=== PATIENT | female | born 1940 | race Caucasian/White ===

== ENCOUNTER 2017-05-27 13:41 | Emergency (ER) | payer MEDICARE, OTHER ==
--- NOTE | ~2017-05-27 | CT71 ---
[facility] A Service [facility] RADIOLOGY TEXT RESULTS PATIENT: CAROLYNN RODRIGUEZ LOCATION: SED : 40 UNIT #: [id number] AGE: [address]: Temo Clay MD SEX: F ORDER DR: [id number] [address] [address] [id number] E MR#: [id number] Acc #: [id number] NAME: CAROLYNN RODRIGUEZ : 1940 SEX: F STUDY DATE/TIME: 05/27/2017 14:11 UNIT: SED ROOM: STUDY DESCRIPTION: CT Head Wo Contrast Attending Physician: Temo Clay M.D. Ordering Physician: Temo Clay M.D. Primary Care Physician: Arnaldo Cardenas M.D. MEDICAL IMAGING REPORT This report is preliminary unless electronic signature is present. EXAM CT scan of the head without contrast. HISTORY Fall with trauma to head. History of brain bleed. Patient fell today. The patient is on blood thinner. Injury happened an hour ago, now has dizziness. COMPARISON 07/06/2007 TECHNIQUE Unenhanced images were obtained through the brain. This CT exam was performed with one or more of the following radiation dose reduction techniques: automatic exposure control, adjustment of mA and/or kV according to patient size, and iterative reconstruction. FINDINGS There are old ischemic changes in the left parker radiata and left basal ganglia. There is kike hole visible on both sides in the frontal region. There is no extraaxial fluid collection, mass, or hemorrhage. IMPRESSION 1. 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 2. No acute findings. Dictated by... Vishal Azar M.D. [facility] A Service [facility] RADIOLOGY TEXT RESULTS PATIENT: CAROLYNN RODRIGUEZ LOCATION: SED : 40 UNIT #: [id number] AGE: [address]: Temo Clay MD SEX: F ORDER DR: THIS IS AN ELECTRONICALLY VERIFIED REPORT Vishal Azar M.D. at 05/28/2017 10:03 AM GLENN/malgorzata TD: 05/27/2017 16:32 JOB #: [id number] MEDICAL IMAGING REPORT Page 1 of 1
[~2017-05-27 13:41] MED LIST: ASPIRINEC PO; ATIVAN PO; BYSTOLIC; COZAAR25 MG PO; DIOVAN HCT 160/1 TAB PO; ELIQUIS5 MG PO; FISH OIL 1,0001 CAP PO; FLEXERIL PO; GLIMEPIRIDE1 MG PO; HCTZ PO; IBUPROFEN PO; JANUVIA PO; LOPRESSOR PO; MARTAZAPINE PO; NITROGYLCERIN SUBLINGUAL; OXYCODON HCL-AP1 TA2 PO; PERCOCET10 PO; PREVACID PO; RANEXA; REMERON PO; SYNTHROID0.05 MG PO; ZANTAC150 MG PO
== END 2017-05-27 15:21 | disposition home or self-care (01) ==
LOC: SED 13:41
DX: S09.90XA Unspecified injury of head, initial encounter (principal); I25.2 Old myocardial infarction; I10 Essential (primary) hypertension; E11.9 Type 2 diabetes mellitus without complications; Z90.49 Acquired absence of other specified parts of digestive tract; Z86.73 Personal history of transient ischemic attack (TIA), and cerebral infarction without residual deficits; Z95.1 Presence of aortocoronary bypass graft; Z79.4 Long term (current) use of insulin; Z79.899 Other long term (current) drug therapy; Z88.5 Allergy status to narcotic agent; Z88.8 Allergy status to other drugs, medicaments and biological substances; W19.XXXA Unspecified fall, initial encounter; Y92.009 Unspecified place in unspecified non-institutional (private) residence as the place of occurrence of the external cause
CPT/HCPCS: 70450; 99283